=== PATIENT | male | born 2000 | race Caucasian/White ===

== ENCOUNTER 2020-03-04 14:10 | Emergency (ER) | payer OTHER ==
[~2020-03-04] VITALS: Ht 172.7 cm; Wt 63.5 kg
[2020-03-04 14:10] VITALS: BP_SYST 155
--- NOTE | 2020-03-04 14:10 | NUR ---
[facility] AND INFORMED OF [facility] WITH 19 YEAR OLD WHO WAS ACCEPTED AT [facility] AND NOW THEY ARE REFUSING TO TAKE PT DUE TO PT BEING CAT[place], NON-VERBAL. PT WAS ACCEPTED THERE FROM [facility] BY DR MARTÍNEZ. PT ARRIVES NON-VERBAL. DIRECTOR MING NOTIFIED.
--- NOTE | 2020-03-04 14:10 | NUR ---
Patient to ER bed 1 to gown for evaluation. Side rails up.
--- NOTE | 2020-03-04 14:15 | NUR ---
Physician order given to place soft type restraints to upper & lower extremities to prevent harm to self & others . Resraints placed with quick-release ties to bed frame. Will monitor patient frequently.
--- NOTE | 2020-03-04 14:15 | NUR ---
PT BROUGHT IN BY [facility], PLACED IN BED #1 AND TRIAGED. REPORT GIVEN TO WILLARD
--- NOTE | 2020-03-04 14:16 | NUR ---
Patient BIB BLS from [facility]. Patient non-verbal, pt made eye contact on assessment. Patient refused to lay down in [place] upon arrival. Patient squinted eyes closed during eye assessment then uncooperative for assessment and continued to attempt to get out of gurney and not follow direction. Per [facility] medic: PT was accepted to [facility] from [facility], upon arrival to [place] intake, PT was refused, [facility] brought PT to [facility] er.
[2020-03-04] MEDS ORDERED: NACL 0.9% 2,000 ML IV ONE (14:45)
--- NOTE | 2020-03-04 14:45 | NUR ---
# 16 FR Izquierdo catheter with use of sterile technique. Immediate return of 400 cc yellow urine noted. Bedside drainage bag placed below level of bladder. Urine sample collected and sent to lab. Pt tolerated procedure well. Patient arrived with diaper.
[2020-03-04 14:49] LABS: BASOPHILS % (AUTO) 0.3 % (0.0-2.0); EOSINOPHILS % (AUTO) 0.3 % (0.0-4.0); HEMATOCRIT 47.9 % (36-54); HEMOGLOBIN 16.4 g/dL (14.0-18.0); LYMPHOCYTES # (AUTO) 1.4 K/uL (1.0-5.5); LYMPHOCYTES % (AUTO) 17.3 % (20.5-51.5); MEAN CORPUSCULAR HEMOGLOBIN 32 pg (27-31); MEAN CORPUSCULAR HGB CONC 34 % (32-36); MEAN CORPUSCULAR VOLUME 94 fL (79.0-98.0); MONOCYTES # (AUTO) 0.7 K/uL (0.0-1.0); MONOCYTES % (AUTO) 8.8 % (1.7-9.3); NEUTROPHILS # (AUTO) 5.9 K/uL (1.8-7.7); NEUTROPHILS % (AUTO) 73.3 % (40.0-70.0); PLATELET COUNT (AUTO) 239 K/uL (130-430); RED BLOOD CELL COUNT(AUTO) 5.08 MIL/uL (4.2-6.2); RED CELL DISTRIBUTION WIDTH 12.5 % (9.0-15.0); WHITE BLOOD COUNT (AUTO) 8.1 K/uL (4.5-11.0)
[2020-03-04 15:07] LABS: ANION GAP 14 (5-15); CALCIUM 8.5 mg/dL (8.4-11.0); CHLORIDE 101 mmol/L (98-107); CREATININE 0.92 mg/dL (0.55-1.30); GLUCOSE 105 mg/dL (70-99); POTASSIUM 3.6 mmol/L (3.5-5.1); SODIUM SERUM 137 mmol/L (136-145); UREA NITROGEN, BLOOD 6 mg/dL (8-21)
[2020-03-04 15:15] LABS: GFR AFRICAN AMERICAN 136 mL/min (>90)
--- NOTE | 2020-03-04 15:19 | NUR ---
SPOKE WITH MOTHER OF PT. INFORMED OF WHY PT IS HERE INSTEAD OF [facility]. WILL HAVE NURSE CALL IF ANY CHANGE. VERIFIED MOTHERS PHONE NUMBER WITH PHONE NUMBER IN DEMOGRAPHIC DATA SHEET.
--- NOTE | 2020-03-04 15:22 | NUR ---
REPORT TO BRIT MCMAHAN
[2020-03-04 15:23] LABS: ALANINE AMINOTRANSFERASE 39 U/L (12-78); ALBUMIN 4.2 g/dL (3.4-4.8); ASPARTATE AMINOTRANSFERASE 54 U/L (10-37); TOTAL BILIRUBIN 1.4 mg/dL (0.0-1.0)
[2020-03-04 15:24] LABS: BILIRUBIN,URINE NEGATIVE (NEGATIVE); BLOOD, URINE NEGATIVE (NEGATIVE); CLARITY/URINE CLEAR (CLEAR); COLOR,URINE YELLOW (YELLOW); GLUCOSE,URINE NEGATIVE (NEGATIVE); KETONES,URINE 2+ (NEGATIVE); LEUKOCYTE ESTERASE ,URINE NEGATIVE (NEGATIVE); NITRITE, URINE NEGATIVE (NEGATIVE); PROTEIN URINE NEGATIVE (NEGATIVE); UROBILINOGEN,URINE 0.2 (0.2-1.0)
--- NOTE | 2020-03-04 15:30 | NUR ---
Pt. is A&O x1, unresponsive, and nonverbal. At times, pt. will lift head and arms and attempt to sit up, but he is unable to communicate and is sleeping at this time. Pt. in 4 point restraints, pulses WNL bilaterally, skin is warm and dry, and cap refill <3 seconds. VSS. Will continue to monitor pt.
--- NOTE | 2020-03-04 15:30 | NUR ---
Report given by MARTIR Quinonez for continuation of care.
[2020-03-04 15:32] LABS: ALCOHOL, BLOOD < 3 mg/dL (<10)
[2020-03-04 15:33] LABS: ACETAMINOPHEN < 1 ug/mL (1-30)
--- NOTE | 2020-03-04 15:50 | NUR ---
Wanding performed by security at bedside.
[2020-03-04 15:54] LABS: BARBITURATE, URINE NEGATIVE (NEG <=200); BENZODIAZEPINE, URINE POSITIVE (NEG <=150); COCAINE, URINE NEGATIVE (NEG <=150); METHAMPHETAMINES SCREEN,URINE NEGATIVE (NEG <=500); URINE AMPHETAMINE NEGATIVE (NEG <=500); URINE METHADONE NEGATIVE (NEG <=200)
[2020-03-04 15:55] LABS: CANNABINOID, URINE POSITIVE (NEG <=50); OPIATE, URINE NEGATIVE (NEG <=100); PHENCYCLIDINE SCREEN,URINE NEGATIVE (NEG <=25); UR TRICYCLIC ANTIDEPRESSANTS NEGATIVE (NEG <=300); URINE OXYCODONE SCREEN NEGATIVE (NEG <=100); URINE PROPOXYPHENE SCREEN NEGATIVE (NEG <=300)
--- NOTE | 2020-03-04 15:58 | NUR ---
PATIENT'S BROTHER, JADYN, PHONED FOR UPDATE ON PATIENT. STATES " I THINK MY BROTHER REALLY NEEDS TO TALK TO ME." INFORMED BROTHER PATIENT IS NON VERBAL AT THIS TIME. BROTHER STATES HE WILL CALL BACK.
--- NOTE | 2020-03-04 16:12 | NUR ---
Patient observed sitting up in bed with eyes closed. Patient redirected to person and place shortly after patient laid back down in [facility]
[2020-03-04 16:24] LABS: CKMB RELATIVE INDEX 0.1 (0.0-2.9); CREATINE KINASE MB 1.6 ng/mL (0-3.6)
--- NOTE | 2020-03-04 16:30 | NUR ---
Patient resting in bed. VSS. Will continue to monitor.
--- NOTE | 2020-03-04 17:00 | NUR ---
DR. JAFFE SPEAKING TO DR NG BRYANT, FOR PLAN OF CARE OF PATIENT
--- NOTE | 2020-03-04 17:12 | NUR ---
accept transfer to [facility]. Will await transfer orders. Patient in stable condition. Resting im bedside.
--- NOTE | 2020-03-04 17:18 | NUR ---
Dr. Cole at bedside ok to remove one LE restraint. Left leg restraint removed.
[2020-03-04] MEDS ORDERED: NACL 0.9% 1,000 ML IV ONE (18:00)
--- NOTE | 2020-03-04 18:00 | NUR ---
Pt. observed purposefully removing cardiac leads and attempting to bit and remove right wrist restraint and left wrist restraints.
--- NOTE | 2020-03-04 18:15 | NUR ---
physician order renewal obtained by Dr. Cole. Placed in chart
--- NOTE | 2020-03-04 18:20 | NUR ---
Patient to be transferred to [facility]. Is being transferred due to higher level of care. Receiving facility has accepting physician and available space. ER physician has signed transfer form. Patient or responsible republican has agreed to transfer and signed form. Patient belongings inventoried and will be sent with patient. Copy of nursing notes, lab reports, EKG, Physicians Orders and X-rays to be sent with patient. Report called to MARTIR Wyman at receiving facility. Receiving physician is Dr. Cline. Ambulance service has been called for transfer. ETA is 1830.
--- NOTE | 2020-03-04 18:26 | NUR ---
PATIENT OBSERVED SPITTING. ATTEMPTED TO PLACE MASK. PATIENT REMOVED MASK WITH RIGHT HAND MULTIPLE TIMES.
--- NOTE | 2020-03-04 18:29 | NUR ---
FATHER, MARCIE, CALLED FOR PATIENT UPDATE. FATHER INFORMED PATIENT WAS ACC[facility]PT[facility].
[2020-03-04 19:20] VITALS: BP_SYST 136
--- NOTE | 2020-03-04 19:20 | NUR ---
Patient to be transferred to [facility] via transport. Pt. is being transferred due to higher level of care. Receiving facility has accepting physician and available space. ER physician has signed transfer form. Patient or responsible constitution party has agreed to transfer and signed form. Patient belongings inventoried and will be sent with patient. Copy of nursing notes, lab reports, EKG, Physicians Orders and X-rays to be sent with patient. Report called to MARTIR Wyman at receiving facility. Receiving physician is Dr. Cline. Time of arrival is 1919.
== END 2020-03-04 19:20 | disposition short-term general hospital (02) ==
LOC: SED 14:10
DX: R45.81 Low self-esteem (principal); M62.82 Rhabdomyolysis; F12.90 Cannabis use, unspecified, uncomplicated; F15.90 Other stimulant use, unspecified, uncomplicated
CPT/HCPCS: 36415; 36600; 80053; 80307; 81003; 82550; 82553; 82803; 85025; 93005; 96360; 96361; 99285; G0480; G0481; G0482; J7030